=== PATIENT | female | born 1980 | race Two or more races ===

== ENCOUNTER 2019-08-09 21:22 | Emergency (ER) | payer MEDICAID ==
[~2019-08-09] VITALS: Ht 160 cm; Wt 62.6 kg
[2019-08-09 21:24] VITALS: BP 167/100
== END 2019-08-10 02:50 | disposition left against medical advice (07) ==
LOC: EDBD 21:22 → ER 21:24
DX: M54.6 Pain in thoracic spine (principal); M25.512 Pain in left shoulder; Z53.21 Procedure and treatment not carried out due to patient leaving prior to being seen by health care provider; Y04.0XXA Assault by unarmed brawl or fight, initial encounter; Y93.89 Activity, other specified; Y92.89 Other specified places as the place of occurrence of the external cause; Y99.8 Other external cause status

== ENCOUNTER → 2020-04-30 | Emergency (ER) | payer MEDICAID ==
[~2020-04-30] VITALS: Ht 160 cm; Wt 70.3 kg
[2020-04-30 22:39] VITALS: BP 169/127
== END | disposition left against medical advice (07) ==
LOC: ER 22:37
DX: R22.0 Localized swelling, mass and lump, head (principal); Z53.21 Procedure and treatment not carried out due to patient leaving prior to being seen by health care provider